=== PATIENT | female | born 1950 | race African-American/Black ===

== ENCOUNTER 2021-05-15 20:49 | Inpatient (IN) | payer OTHER ==
[2021-05-15 21:46] LABS: HEMATOCRIT 34.9 % (32.4-45.2); HEMOGLOBIN 11.4 GM/dL (10.7-15.3); MCH 28.5 pg (25.7-33.7); MCHC 32.6 g/dl (32.0-36.0); MEAN CELL VOLUME 87.6 fl (80-96); MEAN PLT VOLUME 8.5 fl (7.5-11.1); PLATELET COUNT 368 10^3/uL (134-434); RBC 3.98 M/mm3 (3.60-5.2); RDW 12.9 % (11.6-15.6)
[2021-05-15 21:55] LABS: INR 1.1 (0.83-1.09); PROTHROMBIN TIME (PATIENT) 13.5 SEC (9.7-13.0)
[2021-05-15 21:56] LABS: CHLORIDE 104 mmol/L (98-107); SODIUM 137 mmol/L (136-145)
[2021-05-15 21:58] LABS: ACTIVATED PTT 29.2 SECONDS (25.2-36.5); CALCIUM 10.4 mg/dL (8.5-10.1)
[2021-05-15 21:59] LABS: ALBUMIN 3.5 g/dl (3.4-5.0); ANION GAP 9 MMOL/L (8-16); BLOOD UREA NITROGEN 17.7 mg/dL (7-18); CO2 24 mmol/L (21-32); GLUCOSE,RANDOM 305 mg/dL (74-106)
[2021-05-15 22:02] LABS: CREATININE 0.9 mg/dL (0.55-1.3); SGOT/AST 13 U/L (15-37); SGPT/ALT 20 U/L (13-61)
[2021-05-15 22:03] LABS: BILIRUBIN,TOTAL 0.4 mg/dL (0.2-1); TOT PROT 8.1 g/dl (6.4-8.2)
[2021-05-15 22:04] LABS: ALK PHOS 166 U/L (45-117)
[2021-05-15] MEDS ORDERED: METOCLOPRAMIDE HCL INJECTION 10 MG/2 ML VIAL IVPUSH ONE (22:16)
[2021-05-15] MEDS ORDERED: FAMOTIDINE 20 MG/50 ML IVPB 20 MG/50 ML MG IVPB ONE (22:19)
[2021-05-15] MEDS ORDERED: ACETAMINOPHEN 1000 MG/100 ML VIAL (NON FORMULARY) IVPB ONE (22:26)
[2021-05-15] MEDS ORDERED: amLODIPine BESYLATE 5 MG TABLET (FP) PO ONE (22:27)
[2021-05-15] MEDS ORDERED: SODIUM CHLORIDE 0.9% 500 ML INFUS.BAG IV ONE (22:27)
[2021-05-15 22:35] LABS: ANISOCYTOSIS 0; MACROCYTOSIS 0; PLATELET ESTIMATE NORMAL
[2021-05-15 23:47] LABS: LIPASE 60 U/L (73-393)
[2021-05-16] MEDS ORDERED: DOCUSATE SODIUM 100 MG CAPSULE (FP) PO ONE ×2 (01:33→02:02)
[2021-05-16] MEDS ORDERED: SODIUM PHOSPHATE/NA BIPHOS 133 ML ENEMA PR ONE (01:33)
[2021-05-16 04:47] LABS: EPI CELLS 31 /uL (0-25.1); HYALINE CASTS 1 /uL (0-3.1); URINE APPEARANCE CLEAR; URINE BACTERIA 441 /uL (0-1359); URINE BILIRUBIN NEGATIVE (NEGATIVE); URINE COLOR YELLOW; URINE GLUCOSE (UA) 2+ (NEGATIVE); URINE KETONE NEGATIVE (NEGATIVE); URINE LEUK ESTERASE NEGATIVE (NEGATIVE); URINE NITRITE NEGATIVE (NEGATIVE); URINE PROTEIN 1+ (NEGATIVE); URINE RBC 41 /uL (0-23.9); URINE WBC 43 /uL (0-25.8)
[2021-05-16] MEDS ORDERED: VALSARTAN 40 MG TABLET PO ONE (06:10)
[2021-05-16] MEDS ORDERED: morphine CARPU-JECT 2 MG/1 ML DISP.SYRIN IVPUSH ONE (06:11)
[2021-05-16] MEDS ORDERED: SUCRALFATE 1 GM TABLET (FP) PO ONE (06:11)
[2021-05-16] MEDS ORDERED: MORPHINE SULFATE 2 MG/ML VIAL ONE (06:13)
[2021-05-16] MEDS ORDERED: SUCRALFATE 1 GM TABLET (FP) ONE (06:14)
[2021-05-16] MEDS ORDERED: VALSARTAN 80 MG TABLET ONE (06:16)
[2021-05-16] MEDS: SODIUM CHLORIDE 1,000 ML IV SCH (07:20)
[2021-05-16] MEDS ORDERED: ACETAMINOPHEN 1000 MG/100 ML VIAL (NON FORMULARY) IVPB PRN (07:27)
[2021-05-16] MEDS ORDERED: MINERAL OIL ENEMA 133 ML ENEMA RC PRN (07:36)
[2021-05-16 08:43] LABS: BASO % 0.5 % (0-2.0); EOS % 0.2 % (0-4.5); HEMATOCRIT 34.4 % (32.4-45.2); HEMOGLOBIN 11.3 GM/dL (10.7-15.3); LYMPH % 10.2 % (8-40); MCH 28.7 pg (25.7-33.7); MCHC 32.7 g/dl (32.0-36.0); MEAN CELL VOLUME 87.8 fl (80-96); MEAN PLT VOLUME 8.2 fl (7.5-11.1); MONO % 5.5 % (3.8-10.2); NEUT % 83.6 % (42.8-82.8); PLATELET COUNT 334 10^3/uL (134-434); RBC 3.92 M/mm3 (3.60-5.2); RDW 12.8 % (11.6-15.6); WHITE BLOOD COUNT 14.4 K/mm3 (4.0-10.0)
[2021-05-16 09:02] LABS: BLOOD UREA NITROGEN 13.9 mg/dL (7-18); CALCIUM 10.3 mg/dL (8.5-10.1)
[2021-05-16 09:03] LABS: ALBUMIN 3.4 g/dl (3.4-5.0)
[2021-05-16 09:04] LABS: CREATININE 0.8 mg/dL (0.55-1.3)
[2021-05-16 09:05] LABS: BILIRUBIN,TOTAL 0.5 mg/dL (0.2-1)
[2021-05-16 09:06] LABS: TOT PROT 7.8 g/dl (6.4-8.2)
[2021-05-16] MEDS ORDERED: hydrALAZINE HCL 20 MG/ML VIAL ONE (09:19)
[2021-05-16] MEDS ORDERED: METOCLOPRAMIDE HCL INJECTION 10 MG/2 ML VIAL ONE (09:19)
[2021-05-16] MEDS: METOCLOPRAMIDE HCL INJECTION 10 MG/2 ML VIAL IVPUSH PRN (09:30)
[2021-05-16] MEDS: hydrALAZINE HCL 20 MG/ML VIAL IVPUSH PRN ×3 (09:30→23:15)
[2021-05-16] MEDS ORDERED: ENOXAPARIN NA (PORCINE) 40 MG/0.4 ML DISP.SYRIN SQ ONE (09:58)
[2021-05-16] MEDS: ENOXAPARIN NA (PORCINE) 40 MG/0.4 ML DISP.SYRIN SQ SCH (10:02)
[2021-05-16] MEDS: INSULIN SLIDING SCALE (NOVOLOG) 1 VIAL SQ SCH ×3 (12:55→21:31)
[2021-05-16] MEDS: POLYETHYLENE GLYCOL (HEALTHYLAX) 3350 17 GM PACKET PO PRN (21:29)
[2021-05-16 22:53] VITALS: BMI 35.8
[2021-05-17] MEDS: METOCLOPRAMIDE HCL INJECTION 10 MG/2 ML VIAL IVPUSH PRN (05:03)
[2021-05-17] MEDS ORDERED: hydrALAZINE HCL 20 MG/ML VIAL IVPUSH PRN (05:55)
[2021-05-17] MEDS: INSULIN SLIDING SCALE (NOVOLOG) 1 VIAL SQ SCH ×4 (06:06→21:42)
[2021-05-17] MEDS: SODIUM CHLORIDE 1,000 ML IV SCH (06:14)
[2021-05-17] MEDS ORDERED: SODIUM CHLORIDE 1,000 ML IV SCH (10:30)
[2021-05-17] MEDS ORDERED: amLODIPine BESYLATE 5 MG TABLET (FP) PO SCH (11:30)
[2021-05-17] MEDS ORDERED: ALBUTEROL SO4 HFA INHALER IH PRN (11:37)
[2021-05-17] MEDS: ASPIRIN 81 MG CHEWABLE TABLETS PO SCH (11:48)
[2021-05-17] MEDS: ATORVASTATIN CA 40 MG TABLET (FP) PO SCH (11:48)
[2021-05-17] MEDS: ENOXAPARIN NA (PORCINE) 40 MG/0.4 ML DISP.SYRIN SQ SCH (11:49)
[2021-05-17] MEDS ORDERED: LISINOPRIL 20 MG TABLET PO SCH (14:45)
[2021-05-17] MEDS ORDERED: ENOXAPARIN NA (PORCINE) 60 MG/0.6 ML DISP.SYRIN SQ ONE (15:36)
[2021-05-17] MEDS: INSULIN (LEVEMIR) 100 UNITS/ML UNITS SQ SCH (21:41)
[2021-05-17] MEDS: ENOXAPARIN NA (PORCINE) 100 MG/1 ML DISP.SYRIN SQ SCH (21:42)
[2021-05-17] MEDS: POLYETHYLENE GLYCOL (HEALTHYLAX) 3350 17 GM PACKET PO PRN (21:42)
[2021-05-17] MEDS ORDERED: INSULIN (LEVEMIR) 100 UNITS/ML UNITS SQ SCH (22:00)
[2021-05-18 01:50] LABS: BASO % 0.4 % (0-2.0); EOS % 1.8 % (0-4.5); HEMATOCRIT 32.6 % (32.4-45.2); HEMOGLOBIN 10.8 GM/dL (10.7-15.3); LYMPH % 32.2 % (8-40); MCHC 33.1 g/dl (32.0-36.0); MEAN CELL VOLUME 87.6 fl (80-96); MEAN PLT VOLUME 8.1 fl (7.5-11.1); MONO % 8.2 % (3.8-10.2); NEUT % 57.4 % (42.8-82.8); PLATELET COUNT 348 10^3/uL (134-434); RBC 3.72 M/mm3 (3.60-5.2); RDW 12.8 % (11.6-15.6); WHITE BLOOD COUNT 9.3 K/mm3 (4.0-10.0)
[2021-05-18 01:57] LABS: INR 1.07 (0.83-1.09); PROTHROMBIN TIME (PATIENT) 13.2 SEC (9.7-13.0)
[2021-05-18 02:00] LABS: ACTIVATED PTT 44.1 SECONDS (25.2-36.5)
[2021-05-18 02:09] LABS: CHLORIDE 112 mmol/L (98-107); SODIUM 143 mmol/L (136-145)
[2021-05-18 02:12] LABS: ALBUMIN 3.2 g/dl (3.4-5.0); ANION GAP 5 MMOL/L (8-16); BLOOD UREA NITROGEN 15.1 mg/dL (7-18); CALCIUM 10.1 mg/dL (8.5-10.1); CO2 26 mmol/L (21-32); GLUCOSE,RANDOM 108 mg/dL (74-106)
[2021-05-18 02:15] LABS: CHOLESTEROL 137 mg/dL (50-200); CREATININE 0.7 mg/dL (0.55-1.3); SGPT/ALT 24 U/L (13-61)
[2021-05-18 02:16] LABS: BILIRUBIN,TOTAL 0.4 mg/dL (0.2-1); LDL CHOLESTEROL (ONLY SJRH) 56 mg/dL (5-100); SGOT/AST 18 U/L (15-37); TOT PROT 7.4 g/dl (6.4-8.2); TRIGLYCERIDES 39 mg/dL (0-150)
[2021-05-18 02:18] LABS: ALK PHOS 140 U/L (45-117); HDL CHOLESTEROL 67 mg/dL (40-60)
[2021-05-18] MEDS: INSULIN (LEVEMIR) 100 UNITS/ML UNITS SQ SCH ×2 (06:41→21:06)
[2021-05-18] MEDS: INSULIN SLIDING SCALE (NOVOLOG) 1 VIAL SQ SCH ×4 (06:43→21:06)
[2021-05-18] MEDS ORDERED: amLODIPine BESYLATE 5 MG TABLET (FP) PO ONE (07:15)
[2021-05-18 07:53] LABS: BASO % 0.5 % (0-2.0); EOS % 1.7 % (0-4.5); HEMATOCRIT 33.6 % (32.4-45.2); HEMOGLOBIN 11.2 GM/dL (10.7-15.3); LYMPH % 27.4 % (8-40); MCH 29.2 pg (25.7-33.7); MCHC 33.2 g/dl (32.0-36.0); MEAN CELL VOLUME 87.7 fl (80-96); MEAN PLT VOLUME 8.6 fl (7.5-11.1); MONO % 6.8 % (3.8-10.2); NEUT % 63.6 % (42.8-82.8); PLATELET COUNT 363 10^3/uL (134-434); RBC 3.83 M/mm3 (3.60-5.2); RDW 12.9 % (11.6-15.6); WHITE BLOOD COUNT 9.8 K/mm3 (4.0-10.0)
[2021-05-18] MEDS: ASPIRIN 81 MG CHEWABLE TABLETS PO SCH (09:01)
[2021-05-18] MEDS: ENOXAPARIN NA (PORCINE) 100 MG/1 ML DISP.SYRIN SQ SCH (09:01)
[2021-05-18] MEDS: LISINOPRIL 20 MG TABLET PO SCH (09:01)
[2021-05-18] MEDS: POLYETHYLENE GLYCOL (HEALTHYLAX) 3350 17 GM PACKET PO PRN (09:01)
[2021-05-18 09:12] LABS: ALBUMIN 3.3 g/dl (3.4-5.0); BLOOD UREA NITROGEN 12.7 mg/dL (7-18); CALCIUM 10.3 mg/dL (8.5-10.1); CREATININE 0.8 mg/dL (0.55-1.3)
[2021-05-18 09:41] LABS: BILIRUBIN,TOTAL 0.6 mg/dL (0.2-1); TOT PROT 7.7 g/dl (6.4-8.2)
[2021-05-18] MEDS ORDERED: CLOPIDOGREL BISULFATE 75 MG TABLET (FP) PO SCH (10:00)
[2021-05-18 10:18] LABS: EPI CELLS 6 /uL (0-25.1); HYALINE CASTS 0 /uL (0-3.1); URINE APPEARANCE CLEAR; URINE BACTERIA 450 /uL (0-1359); URINE BILIRUBIN NEGATIVE (NEGATIVE); URINE COLOR YELLOW; URINE GLUCOSE (UA) NEGATIVE (NEGATIVE); URINE KETONE NEGATIVE (NEGATIVE); URINE LEUK ESTERASE NEGATIVE (NEGATIVE); URINE NITRITE NEGATIVE (NEGATIVE); URINE PROTEIN NEGATIVE (NEGATIVE); URINE RBC 146 /uL (0-23.9); URINE WBC 8 /uL (0-25.8)
[2021-05-18] MEDS ORDERED: ACETAMINOPHEN 650 MG/20.3 ML ORAL SOLUTION (CUPS) PO PRN (16:11)
[2021-05-18] MEDS: ATORVASTATIN CA 40 MG TABLET (FP) PO SCH (21:05)
[2021-05-18] MEDS: APIXABAN 5 MG TABLET PO SCH (21:07)
[2021-05-19] MEDS: INSULIN SLIDING SCALE (NOVOLOG) 1 VIAL SQ SCH ×3 (06:04→17:03)
[2021-05-19] MEDS: INSULIN (LEVEMIR) 100 UNITS/ML UNITS SQ SCH (07:16)
[2021-05-19 07:25] LABS: BASO % 0.5 % (0-2.0); EOS % 1.9 % (0-4.5); HEMATOCRIT 34.2 % (32.4-45.2); HEMOGLOBIN 11.1 GM/dL (10.7-15.3); LYMPH % 22.6 % (8-40); MCH 28.6 pg (25.7-33.7); MCHC 32.5 g/dl (32.0-36.0); MEAN CELL VOLUME 88.1 fl (80-96); MEAN PLT VOLUME 8.6 fl (7.5-11.1); MONO % 6.8 % (3.8-10.2); NEUT % 68.2 % (42.8-82.8); PLATELET COUNT 382 10^3/uL (134-434); RBC 3.88 M/mm3 (3.60-5.2); RDW 12.8 % (11.6-15.6); WHITE BLOOD COUNT 9.9 K/mm3 (4.0-10.0)
[2021-05-19 08:20] LABS: CALCIUM 10.4 mg/dL (8.5-10.1)
[2021-05-19 08:21] LABS: ALBUMIN 3.1 g/dl (3.4-5.0); BLOOD UREA NITROGEN 13.1 mg/dL (7-18)
[2021-05-19 08:22] LABS: MAGNESIUM 2.1 mg/dL (1.8-2.4)
[2021-05-19 08:24] LABS: CREATININE 0.7 mg/dL (0.55-1.3)
[2021-05-19 08:26] LABS: TOT PROT 7.4 g/dl (6.4-8.2)
[2021-05-19] MEDS ORDERED: INSULIN (LEVEMIR) 100 UNITS/ML UNITS SQ SCH (09:00)
[2021-05-19] MEDS: ASPIRIN 81 MG CHEWABLE TABLETS PO SCH (09:48)
[2021-05-19] MEDS: LISINOPRIL 20 MG TABLET PO SCH (09:48)
[2021-05-19] MEDS: APIXABAN 5 MG TABLET PO SCH (09:48)
[2021-05-19] MEDS ORDERED: amLODIPine BESYLATE 5 MG TABLET (FP) PO SCH (10:00)
[2021-05-19 18:39] VITALS: BP 154/81; PULSE 90; TEMP 97.8
== END 2021-05-19 18:55 | disposition home health service (06) | DRG 45 ==
LOC: JER 20:49 → INTOOBSV 05-16 06:49 → JERBED 05-16 06:49 → J4W 05-16 20:29 → OBSVTOIN 05-18 13:00
PROVIDERS: ADMIT Family Medicine; ATTEND Nurse Practitioner Acute Care
DX: I63.9 Cerebral infarction, unspecified (principal); E11.65 Type 2 diabetes mellitus with hyperglycemia; G93.89 Other specified disorders of brain; I48.92 Unspecified atrial flutter; R29.810 Facial weakness; E66.9 Obesity, unspecified; Z68.35 Body mass index [BMI] 35.0-35.9, adult; E78.5 Hyperlipidemia, unspecified; I10 Essential (primary) hypertension; R29.702 NIHSS score 2; J45.909 Unspecified asthma, uncomplicated; K21.9 Gastro-esophageal reflux disease without esophagitis; I48.91 Unspecified atrial fibrillation
CPT/HCPCS: 36415; 70450-TC; 70551-TC; 71045-TC-FY; 74177-TC; 76705-TC; 80053; 80061; 81003; 82550; 82607; 82962; 83036; 83690; 83735; 83880; 84443; 84484; 85025; 85610; 85730; 86780; 86850; 86900; 86901; 93005; 93010; 93880-TC; 97116-GP; 97162-GP; 99285-25; C9803; G0378; J0131; Q9967; U0003; U0005

== ENCOUNTER 2023-07-22 10:10 | Emergency (ER) | payer OTHER ==
[2023-07-22 10:41] VITALS: BMI 38.2
[2023-07-22] MEDS ORDERED: METOCLOPRAMIDE HCL INJECTION 10 MG/2 ML VIAL IVPB ONE (10:49)
[2023-07-22] MEDS ORDERED: MECLIZINE HCL 25 MG TABLET (FP) PO ONE (10:49)
[2023-07-22] MEDS ORDERED: ACETAMINOPHEN 1000 MG/100 ML BAG IVPB ONE (10:49)
[2023-07-22] MEDS ORDERED: MECLIZINE HCL 25 MG TABLET (FP) ONE (11:27)
[2023-07-22] MEDS ORDERED: ACETAMINOPHEN INJECTION 100 ML IVPB ONE (11:28)
[2023-07-22] MEDS ORDERED: METOCLOPRAMIDE HCL INJECTION 10 MG/2 ML VIAL ONE (11:28)
[2023-07-22 11:53] LABS: BASO % 1.1 % (0-2.0); EOS % 3.4 % (0-4.5); HEMATOCRIT 32.6 % (32.4-45.2); HEMOGLOBIN 10.3 GM/dL (10.7-15.3); MCH 27.8 pg (25.7-33.7); MCHC 31.5 g/dl (32.0-36.0); MEAN CELL VOLUME 88.2 fl (80-96); MEAN PLT VOLUME 7.4 fl (7.5-11.1); MONO % 7.6 % (3.8-10.2); NEUT % 63.9 % (42.8-82.8); PLATELET COUNT 486 10^3/uL (134-434); WHITE BLOOD COUNT 8.5 K/mm3 (4.0-10.0)
[2023-07-22 12:05] LABS: INR 1.2 (0.83-1.09); PROTHROMBIN TIME (PATIENT) 13.9 SEC (9.7-13.0)
[2023-07-22 12:13] LABS: POTASSIUM 4.5 mmol/L (3.5-5.1)
[2023-07-22 12:15] LABS: BLOOD UREA NITROGEN 15.4 mg/dL (7-18); CALCIUM 10.6 mg/dL (8.5-10.1)
[2023-07-22 12:16] LABS: ALBUMIN 3.2 g/dl (3.4-5.0); MAGNESIUM 1.7 mg/dL (1.8-2.4)
[2023-07-22 12:18] LABS: CREATININE 1.4 mg/dL (0.55-1.3)
[2023-07-22 12:20] LABS: BILIRUBIN,TOTAL 0.6 mg/dL (0.2-1)
[2023-07-22] MEDS ORDERED: MAGNESIUM SULF 50% (8.12 MEQ/2 ML-1 GM VIAL) IVPB ONE (13:29)
[2023-07-22] MEDS ORDERED: SODIUM CHLORIDE 0.9% 1000 ML INFUS.BAG IV ONE (13:29)
[2023-07-22] MEDS ORDERED: MAGNESIUM SULFATE IN WATER 2 GM/50 ML IVPB IVPB ONE (13:38)
[2023-07-22 15:21] LABS: EPI CELLS >36 /uL (0-25.1); HYALINE CASTS 3 /uL (0-3.1); PH,URINE 6.5 (5.0-8.0); URINE APPEARANCE CLOUDY; URINE BACTERIA 841 /uL (0-1359); URINE BILIRUBIN NEGATIVE (NEGATIVE); URINE COLOR YELLOW; URINE GLUCOSE (UA) NEGATIVE (NEGATIVE); URINE KETONE NEGATIVE (NEGATIVE); URINE LEUK ESTERASE 2+ (NEGATIVE); URINE NITRITE NEGATIVE (NEGATIVE); URINE PROTEIN NEGATIVE (NEGATIVE); URINE RBC 14 /uL (0-23.9); URINE UROBILINOGEN 0.2 mg/dL (0.2-1.0); URINE WBC 113 /uL (0-25.8)
[2023-07-22 15:42] LABS: YEAST NONE SEEN (NEGATIVE)
[2023-07-22 16:47] LABS: POTASSIUM 3.7 mmol/L (3.5-5.1)
[2023-07-22 16:48] LABS: CALCIUM 11.2 mg/dL (8.5-10.1)
[2023-07-22 16:49] LABS: BLOOD UREA NITROGEN 16.4 mg/dL (7-18)
[2023-07-22 16:52] LABS: CREATININE 1.3 mg/dL (0.55-1.3)
[2023-07-22 17:25] VITALS: BP 161/89; PULSE 88; RESP 20; TEMP 98.7
== END 2023-07-22 17:58 | disposition home or self-care (01) ==
LOC: JER 10:10
PROC: 3E033NZ Introduction of Analgesics, Hypnotics, Sedatives into Peripheral Vein, Percutaneous Approach (ICD-10-PCS; principal; 2023-07-22)
PROC: 3E033GC Introduction of Other Therapeutic Substance into Peripheral Vein, Percutaneous Approach (ICD-10-PCS; 2023-07-22)
PROC: 3E033GC Introduction of Other Therapeutic Substance into Peripheral Vein, Percutaneous Approach (ICD-10-PCS; 2023-07-22)
DX: R42 Dizziness and giddiness (principal); I10 Essential (primary) hypertension; R51.9 Headache, unspecified; Z20.822 Contact with and (suspected) exposure to COVID-19
CPT/HCPCS: 0241U-QW; 36415; 70450-TC; 71045-TC-FY; 80048; 80053; 81003; 82550; 82962; 83735; 84484; 85025; 85610; 85730; 87086; 93005; 93010; 99285-25

== ENCOUNTER 2024-01-25 13:58 | Emergency (ER) | payer OTHER ==
[2024-01-25 14:18] VITALS: BP 108/58; PULSE 59; RESP 17; TEMP 98.7; BMI 30.7
[2024-01-25] MEDS ORDERED: levETIRAcetam 500 MG TABLET (FP) PO ONE (14:35)
[2024-01-25] MEDS: levETIRAcetam 500 MG TABLET (FP) PO ONE (15:06)
== END 2024-01-25 15:10 | disposition home or self-care (01) ==
LOC: JERFT 13:58
DX: G40.909 Epilepsy, unspecified, not intractable, without status epilepticus (principal); Z76.0 Encounter for issue of repeat prescription
CPT/HCPCS: 36415; 80177; 99283-25